=== PATIENT | female | born 1980 | race Caucasian/White ===

== ENCOUNTER 2022-04-21 13:52 | Emergency (ER) | payer OTHER | END 2022-04-21 16:02 | disposition home or self-care (01) | LOC: JP.ED 13:52 | DX: S16.1XXA Strain of muscle, fascia and tendon at neck level, initial encounter (principal); S00.81XA Abrasion of other part of head, initial encounter; R07.89 Other chest pain; V43.52XA Car driver injured in collision with other type car in traffic accident, initial encounter; Y92.410 Unspecified street and highway as the place of occurrence of the external cause | CPT/HCPCS: 71046; 99284 ==

== ENCOUNTER 2024-03-25 17:11 | Emergency (ER) | payer BC | END 2024-03-25 19:21 | disposition home or self-care (01) | LOC: JP.ED 17:11 | DX: S60.450A Superficial foreign body of right index finger, initial encounter (principal); W45.8XXA Other foreign body or object entering through skin, initial encounter | CPT/HCPCS: 99283 ==